=== PATIENT | male | born 1970 | race Two or more races ===

== ENCOUNTER 2024-03-20 17:07 | Emergency (ER) | payer OTHER ==
[~2024-03-20] VITALS: Ht 170.2 cm; Wt 82.6 kg
[2024-03-20 17:17] VITALS: BP 133/85; PULSE 91; RESP 19; TEMP 98.7; O2SAT 96
--- NOTE | 2024-03-20 17:33 | ED.PDOC ---
History of Present Illness EXP HPI Comments A 54 YEAR OLD MALE PRESENTS TO THE ED WITH COMPLAINT OF EXPOSURE TO BLOOD. PATIENT REPORTS THAT HE WAS IN THE MIDDLE OF SURGERY WHEN HE HAD ACCIDENTALLY PUNCTURED HIS RIGHT INDEX FINGER WITH A SURGICAL BLADE THAT HAD BEEN USED ON HIS PATIENT. PATIENT RELAYS THAT HIS SKIN WAS PIERCED AND IS HERE NOW TO HAVE HIS BLOOD TESTED FOR WORKER'S COMP. PATIENT STATES BLEEDING IS CONTROLLED AND THERE IS ONLY REDNESS TO THE PUNCTURE WOUND SITE. NO OTHER SYMPTOMS OR MODIFYING FACTORS AT THIS TIME. Chief Complaint: Post Exposure Time Seen by MD: 17:30 Primary Care Provider: YARITZA Reviewed Notes: Nurses Notes, Medications, Allergies Allergies: Coded Allergies: NO KNOWN ALLERGIES (Unverified , 03/20/24) Home Meds Active Scripts Cephalexin Monohydrate (Cephalexin) 500 Mg Cap, 2 CAP PO BID, #28 CAP Prov:ADELAIDE RIVAS 03/20/24 Information Source: Patient Mode of Arrival: Ambulatory Severity: Mild, Moderate Severity Needlestick: Wound bled Timing: Hours Duration: Since onset Prehospital treatment: None Location: Broken skin Exposed to: Other Exposed by: Needlestick, Other (SURGICAL BLADE) Treatment prior to arrival: Washing, Irrigation Source information: Unknown Patient information: Unknown Past Medical History PAST MEDICAL HISTORY: DM Surgical History: Denies all surgeries Family History Family History: Reviewed,noncontributory to illness Social History Smoker: Non-Smoker Alcohol: Denies ETOH Use Drugs: Denies Drug Use Lives In: Home Constitutional: denies: chills, diaphoresis, fatigue, fever, malaise, sweats, weakness, others EENTM: denies: blurred vision, double vision, ear bleeding, ear discharge, ear drainage, ear pain, ear ringing, eye pain, eye redness, hearing loss, mouth pain, mouth swelling, nasal discharge, nose bleeding, nose congestion, nose pain, photophobia, tearing, throat pain, throat swelling, voice changes, others Respiratory: denies: cough, hemoptysis, orthopnea, SOB at rest, shortness of breath, SOB with excertion, stridor, wheezing, others Cardiovascular: denies: chest pain, dizzy spells, diaphoresis, Dyspnea on exertion, edema, irregular heart beat, left arm pain, lightheadedness, palpitations, PND, syncope, others Gastrointestinal: denies: abdomen distended, abdominal pain, blood streaked bowels, constipated, diarrhea, dysphagia, difficulty swallowing, hematemesis, melena, nausea, poor appetite, poor fluid intake, rectal bleeding, rectal pain, vomiting, others Genitourinary: denies: burning, dysuria, flank pain, frequency, hematuria, incontinence, penile discharge, penile sore, pain, testicle pain, testicle swelling, urgency, others Neurological: denies: dizziness, fainting, headache, left sided numbness, left sided weakness, numbness, paresthesia, pre-existing deficit, right sided numbness, right sided weakness, seizure, speech problems, tingling, tremors, weakness, others Musculoskeletal: denies: back pain, gout, joint pain, joint swelling, muscle pain, muscle stiffness, neck pain, others Integumetry: reports: wounds (PUNCTURE WOUND TO RIGHT INDEX FINGER); denies: bruises, change in color, change in hair/nails, dryness, laceration, lesions, lumps, rash, others Allergic/Immunocompromised: denies: Difficulty Healing, Frequent Infections, Hives, Itching, others Hematologic/Lymphatic: denies: anemia, blood clots, easy bleeding, easy bruising, swollen glands, others Endocrine: denies: excessive hunger, excessive sweating, excessive thirst, excessive urination, flushing, intolerance to cold, intolerance to heat, unexplained weight gain, unexplained weight loss, others Psychiatric: denies: anxiety, bipolar disorder, depression, hopeless, panic disorder, schizophrenia, sleepless, suicidal, others All Other Systems: Reviewed and Negative Physical Exam General Appearance: No Apparent Distress, Normal HEENT: Normal ENT Inspection, PERRL/EOMI, Pharynx Normal Neck: Full Range of Motion, Non-Tender, Normal, Normal Inspection Respiratory: Chest Non-Tender, Lungs Clear, No Accessory Muscle Use, No Respiratory Distress, Normal Breath Sounds Cardiovascular: No Edema, No JVD, No Murmur, No Gallop, Normal Peripheral Pulses, Regular Rate/Rhythm Breast Exam: Deferred Gastrointestinal: No Organomegaly, Non Tender, No Pulsatile Mass, Normal Bowel Sounds, Soft Genitalia: Deferred Pelvic: Deferred Rectal: Deferred Extremities: No calf tenderness, Normal capillary refill, Normal range of m otion, No pedal edema, Tender (WITH A PUNCTURE WOUND ON RIGHT VOLAR INDEX FINGER. ) Musculoskeletal : Apperance: Normal Neurologic: Alert, pmo consultant II-XII nml as Tested, No Motor Deficits, Normal Affect, Normal Mood, No Sensory Deficits Cerebellar Function: Normal Reflexes: Normal Skin: Dry, Normal Color, Warm, Wounds (TWO SMALL PUNCTURE WOUND ON RIGHT VOLAR INDEX FINGER, NO BLEEDING AND FB, NEUROVASCULAR INTACT. ) Peripheral Pulses: 2+ carotid (R), 2+ carotid (L), 2+ Radial (R), 2+ Radial (L) Lymphatic: No Adenopathy Was a procedure done? Was a procedure done?: No Differential Diagnosis (EXP) Differential Diagnosis: Body fluid exposure, Needle stick exposure X-Ray, Labs, Meds, VS Vital Signs Date Time Temp Pulse Resp B/P (MAP) Pulse Ox O2 Delivery O2 Flow Rate FiO2 03/20/24 17:17 91 19 96 Room Air 03/20/24 17:17 98.7 91 19 133/85 (101) 96 03/20/24 17:17 98.7 91 19 133/85 (101) 96 98.7 Lab Test 03/20/24 17:48 Range/Units Hepatitis B Surface Antigen Pending Hepatitis B Surface Antibody Pending Hepatitis C Antibody Pending HIV (1&2) Antibody Pending X-Ray, Labs, Meds, VS Comment BLOOD TEST POST EXPOSURE Time of 1ST Reevaluation: 18:00 Reevaluation 1ST: Improved Patient Education/Counseling: Diagnosis, Treatment, Need For Follow Up Family Education/Counseling: Diagnosis, Treatment, No Family Present Medical Screening: No EMC Exist At This Time Departure 1 Departure Time of Disposition: 18:00 Impression: Primary Impression: Needle stick injury of finger of right hand Additional Impression: Puncture wound of finger of right hand Qualified Codes: S61.239A - Puncture wound without foreign body of unspecified finger without damage to nail, initial encounter Disposition: HOME / SELF CARE / HOMELESS Condition: Stable Additional Instructions: F/U WORKMAN COMP IN 2 DAYS RECHECK. IF CONDITION BECOME WORSE, RETURN TO ED [facility]. e-Prescriptions Cephalexin Monohydrate (Cephalexin) 500 Mg Cap 2 CAP PO BID, #28 CAP Prov: ADELAIDE RIVAS 03/20/24 Discharged With: Self Critical Care Note Critical Care Time?: No Stability Stability form required: No Heart Score Heart Score: Heart Score Response (Comments) Value History N/A 0 EKG N/A 0 Age N/A 0 Risk Factors N/A 0 Troponin N/A 0 Total 0 I personally scribed for ADELAIDE RIVAS ([email or web address]) on 03/20/24 at 17:33. Electronically submitted by Skip Wu ([email or web address]). ADELAIDE RIVAS Mar 20, 2024 17:33
[2024-03-20] MEDS ORDERED: CEPH500C PO (17:54)
[2024-03-24 08:16] LABS: Hepatitis B Surface Antibody Positive (Negative)
[2024-03-24 08:28] LABS: Hepatitis B Surface Antigen Negative (Negative)
== END 2024-03-20 18:37 | disposition home or self-care (01) ==
LOC: ER 17:13
DX: S61.230A Puncture wound without foreign body of right index finger without damage to nail, initial encounter (principal); E11.9 Type 2 diabetes mellitus without complications; Z77.21 Contact with and (suspected) exposure to potentially hazardous body fluids; Z79.899 Other long term (current) drug therapy; Z20.5 Contact with and (suspected) exposure to viral hepatitis; W46.0XXA Contact with hypodermic needle, initial encounter; Y93.89 Activity, other specified; Y92.69 Other specified industrial and construction area as the place of occurrence of the external cause; Y99.8 Other external cause status
CPT/HCPCS: 36415; 86703; 86706; 86803; 87340